=== PATIENT | female | born 2000 | race Caucasian/White ===

== ENCOUNTER 2022-06-23 13:01 | Emergency (ER) | payer SELFPAY ==
[~2022-06-23] VITALS: Ht 167.6 cm; Wt 64.0 kg
[2022-06-23 13:03] VITALS: BP 124/77
[2022-06-23] MEDS ORDERED: ACETAMINOPHEN 325MG TABLET PO STA (13:21)
[2022-06-23] MEDS ORDERED: ACETAMINOPHEN 325MG TABLET PO ONE (15:30)
[2022-06-23] MEDS ORDERED: CYCL10TA21 MT (16:11)
[2022-06-23] MEDS ORDERED: IBUP-2029 MT (16:11)
== END 2022-06-23 16:32 | disposition home or self-care (01) ==
LOC: ER 13:05
DX: M54.50 Low back pain, unspecified (principal); V49.49XA Driver injured in collision with other motor vehicles in traffic accident, initial encounter; Y93.89 Activity, other specified; Y92.89 Other specified places as the place of occurrence of the external cause; Y99.8 Other external cause status
CPT/HCPCS: 81025; 99283